=== PATIENT | male | born 1980 | race Caucasian/White ===

== ENCOUNTER 2022-10-23 15:23 | Emergency (ER) | payer OTHER ==
[~2022-10-23] VITALS: Wt 68.0 kg
== END 2022-10-23 17:55 | disposition left against medical advice (07) ==
LOC: ED 15:23
DX: Z48.00 Encounter for change or removal of nonsurgical wound dressing (principal); Z53.21 Procedure and treatment not carried out due to patient leaving prior to being seen by health care provider